=== PATIENT | male | born 1965 | race African-American/Black ===

== ENCOUNTER 2017-06-24 18:02 | Emergency (ER) | payer OTHER ==
[2017-06-24 18:21] VITALS: BP 120/66; PULSE 87; TEMP 99.3; BMI 28.6
[2017-06-24] MEDS ORDERED: KETOROLAC TROMETHAMINE 60 MG/2 ML VIAL IM ONE (20:41)
[2017-06-24] MEDS ORDERED: CYCLOBENZAPRINE HCL 10 MG TABLET (FP) PO ONE (20:42)
[2017-06-24] MEDS ORDERED: KETOROLAC TROMETHAMINE 30 MG/1 ML VIAL ONE (20:45)
[2017-06-24] MEDS ORDERED: CYCLOBENZAPRINE HCL 10 MG TABLET (FP) ONE (20:45)
--- NOTE | 2017-06-24 20:48 | PDOC ---
"History of Present Illness - General Chief Complaint: Back Pain Stated Complaint: BACK PAIN Time Seen by Provider: 06/24/17 19:43 History Source: Patient Exam Limitations: No Limitations - History of Present Illness Initial Comments: 06/24/17 20:46 My Chief Complaint: Back pain 3 days History of present illness: Patient is a 52-year-old male with history of hypertension, glaucoma right eye, benign prostatic hypertrophy here today complaining of right thoracic back pain 3 days after lifting an air conditioner and the handle broke. Patient reports that he had been taking gabapentin of his 's and put alighted Cane patch on the area and took some ibuprofen earlier today. Patient reports that he bent forward today picked to order picker his 1-year-old grandchild and felt increased pain in his back without radiation down the legs or any saddle anesthesia or any incontinency. Occurred: reports: other (3 days ) Severity: reports: moderate (right sided thoracic back pain ) Pain Location: reports: back (rt. sided thoracic ) Method of Injury: Yes: other (lifting an AC ) Modifying Factors: improves with: None Loss of Consciousness: no loss of consciousness Associated Symptoms (Fall): denies symptoms Past History - Past Medical History Allergies/Adverse Reactions: Allergies Allergy/AdvReac Type Severity Reaction Status Date / Time No Known Allergies Allergy Verified 06/24/17 18:16 Home Medications: Ambulatory Orders Albuterol Sulfate Inhaler - [Ventolin HFA Inhaler -] 1 puff IH PRN PRN 09/04/16 Fluticasone/Salmeterol [Advair 250-50 Diskus] 1 each IH BID 09/04/16 Hydrochlorothiazide [Hctz -] 12.5 mg PO DAILY 09/04/16 Lisinopril [Zestril] 5 mg PO DAILY 09/04/16 Loratadine [Claritin -] 10 mg PO DAILY 09/04/16 Montelukast Na [Singulair -] 10 mg PO HS 09/04/16 Aspirin [ASA -] 81 mg PO DAILY #0 09/05/16 Medical Marijuana [Medical Marijuana Oil] 1 puff IH QID PRN 12/06/16 Tramadol HCl/Acetaminophen [Tramadol-Acetaminophn 37.5-325] 1 each PO Q6H PRN # 12 tablet MDD 4 06/24/17 Anemia: No Asthma: Yes (NO RECENT ATTACK) Cancer: No Cardiac Disorders: No CVA: No COPD: No CHF: No Dementia: No Diabetes: No GI Disorders: No Disorders: Yes (BPH) HTN: Yes Hypercholesterolemia: No Seizures: No Thyroid Disease: No - Surgical History Abdominal Surgery: Yes (LEFT inguinal HERNIA REPAIR) Appendectomy: No Cardiac Surgery: No Cholecystectomy: No Lung Surgery: No Neurologic Surgery: No Orthopedic Surgery: No - Immunization History Immunization Up to Date: Yes - Suicide/Smoking/Psychosocial Hx Smoking History: Current every day smoker Have you smoked in the past 12 months: Yes Number of Cigarettes Smoked Daily: 3 Information on smoking cessation initiated: No 'Breaking Loose' booklet given: 09/05/16 Hx Alcohol Use: No Drug/Substance Use Hx: No Substance Use Type: Alcohol, Cocaine Hx Substance Use Treatment: Yes (out patient rehab) Trauma Specific PMHX - Complaint Specific PMHX Back Injury: No Review of Systems - Review of Systems Able to Perform ROS?: Yes Constitutional: No: Symptoms Reported HEENTM: No: Symptoms Reported Respiratory: No: Symptoms reported Cardiac (ROS): No: Symptoms Reported ABD/GI: No: Symptoms Reported : No: Symptoms Reported Musculoskeletal: Yes: Back Pain (right sided thoracic back pain) Integumentary: No: Symptoms Reported Neurological: No: Symptoms reported *Physical Exam - Vital Signs Last Vital Signs Temp Pulse Resp BP Pulse Ox 99.3 F 87 15 120/66 97 06/24/17 18:18 06/24/17 18:18 06/24/17 18:18 06/24/17 18:18 06/24/17 18:18 - Physical Exam General Appearance: Yes: Appropriately Dressed Respiratory/Chest: positive: Lungs Clear, Normal Breath Sounds. negative: Chest Tender, Respiratory Distress Cardiovascular: positive: Regular Rhythm, Regular Rate, S1, S2 Musculoskeletal: positive: Normal Inspection, Other (rt. thoracic paraspinal muscle tenderness, no step off noted ). 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 negative: Numbness, Sensory Deficit (b/l legs) Deep Tendon Reflexes: Ankle (L): 3+, Ankle (R): 3+, Knee (L): 3+, Knee (R): 3+ Medical Decision Making - Medical Decision Making 06/24/17 20:48 Patient is a 52-year-old male with history of hypertension, glaucoma right eye, benign prostatic hypertrophy here today complaining of right thoracic back pain 3 days after lifting an air conditioner and the handle broke. Patient reports that he had been taking gabapentin of his 's and put alighted Cane patch on the area and took some ibuprofen earlier today. Patient reports that he bent forward today picked to order picker his 1-year-old grandchild and felt increased pain in his back without radiation down the legs or any saddle anesthesia or any incontinency. Thoracic back strain with muscle spasm Plan: Toradol 30 mg IM now Flexeril 10 mg by mouth now, this did not help pt. does not want more follow up with orthopedist as soon as possible for further eval tylenol # 3 given po will discharge on ultram 37.5mg/325mg po every 6 hrs prn pain # 12 ordered due to not being able to order tylenol # 3 [facility] dictating alternatives 06/24/17 21:28 Confidential Drug Utilization Report Search Terms: vera Fields, 1965 Search Date: 06/24/2017 09:28:04 PM This report was requested by: Tamiko Antonio | Reference #: [id number] Others' Prescriptions Patient Name: Vera Fields Date: 1965 Address: [address] [place] [address] [address] [place] [address] Sex: Male Rx Written Rx Dispensed Drug Quantity Days Supply Prescriber Name 04/17/2017 04/17/2017 acetaminophen-cod #3 tablet 15 8 Cheri Toledo NP, PHD 06/24/17 23:06 06/24/17 23:07 *DC/Admit/Observation/Transfer Diagnosis at time of Disposition: Strain of mid-back Qualifiers: Encounter type: initial encounter Qualified Code(s): S29.012A - Strain of muscle and tendon of back wall of thorax, initial encounter - Discharge Dispostion Disposition: HOME Condition at time of disposition: Stable - Prescriptions Prescriptions: Tramadol HCl/Acetaminophen [Tramadol-Acetaminophn 37.5-325] 1 each PO Q6H PRN # 12 tablet MDD 4 PRN Reason: Pain - Referrals Referrals: Estelle Stevenson MD [Primary Care Provider] - Moiz Stinson MD [Staff Physician] - - Patient Instructions Additional Instructions: Follow-up with orthopedist for further evaluation within the next couple of days Return to emergency room if symptoms worsen any numbness of legs or groin area or any new symptoms develop Avoid any lifting or exercise or turning of worse so abruptly Patient voiced understanding of discharge instructions and all questions were answered"
[2017-06-24] MEDS ORDERED: ACETAMINOPHEN WITH CODEINE 300MG/30MG TABLET PO ONE (21:34)
[2017-06-24] MEDS ORDERED: ACETAMINOPHEN WITH CODEINE 300MG/30MG TABLET ONE (21:36)
== END 2017-06-24 21:47 | disposition home or self-care (01) ==
LOC: JERFT 18:02
PROC: 3E0233Z Introduction of Anti-inflammatory into Muscle, Percutaneous Approach (ICD-10-PCS; principal; 2017-06-24)
DX: S29.012A Strain of muscle and tendon of back wall of thorax, initial encounter (principal); X50.0XXA Overexertion from strenuous movement or load, initial encounter; Y93.89 Activity, other specified; Y92.89 Other specified places as the place of occurrence of the external cause; I10 Essential (primary) hypertension; N40.0 Benign prostatic hyperplasia without lower urinary tract symptoms; J45.909 Unspecified asthma, uncomplicated; H40.89 Other specified glaucoma; F17.210 Nicotine dependence, cigarettes, uncomplicated
CPT/HCPCS: 96372; 99281-25

== ENCOUNTER 2020-12-18 02:21 | Emergency (ER) | payer OTHER ==
[2020-12-18 02:45] VITALS: BP 154/90; PULSE 98; TEMP 97.6; BMI 24.0
[2020-12-18] MEDS ORDERED: IBUPROFEN 400 MG TABLET (FP) PO ONE ×2 (03:03→03:11)
== END 2020-12-18 04:00 | disposition home or self-care (01) ==
LOC: JER 02:21
DX: M25.571 Pain in right ankle and joints of right foot (principal)
CPT/HCPCS: 73610-TC-RT-FY; 99284-25